=== PATIENT | female | born 1970 | race Hispanic/Latino ===

== ENCOUNTER 2020-10-20 19:21 | Emergency (ER) | payer OTHER ==
[~2020-10-20] VITALS: Ht 165.1 cm; Wt 117.9 kg
[~2020-10-20 19:21] MED LIST: ATIVAN1 MG PO; MEDROL4 MG/DOSE-; NORCO 5-325 TA1 EACH PO; SOMA350 MG PO
[2020-10-20] MEDS ORDERED: KETOROLAC TROMETHAMINE 30 MG/ML VIAL IM STA (19:59)
[2020-10-20] MEDS ORDERED: ACETAMINOPHEN 325 MG TAB PO ONE (20:00)
[2020-10-20] MEDS ORDERED: DEXAMETHASONE SOD PHOS 10 MG/1 ML VIAL IM ONE (20:00)
[2020-10-20] MEDS ORDERED: LIDOPATCH1 EACH TOP (20:06)
[2020-10-20] MEDS ORDERED: ACETAMINOPHEN 325 MG TAB ONE (20:17)
[2020-10-20] MEDS ORDERED: KETOROLAC TROMETHAMINE 30 MG/ML VIAL ONE (20:17)
[2020-10-20] MEDS ORDERED: LIDOCAINE 4% PATCH TP ONE (20:17)
[2020-10-20] MEDS ORDERED: DEXAMETHASONE SOD PHOS 10 MG/1 ML VIAL ONE (20:17)
[2020-10-21] MEDS ORDERED: LIDOCAINE 4% PATCH TP SCH (09:00)
== END 2020-10-20 21:12 | disposition home or self-care (01) ==
LOC: ER 20:01
DX: M54.5 Low back pain (principal); K21.9 Gastro-esophageal reflux disease without esophagitis
CPT/HCPCS: 99283; J1100; J1885

== ENCOUNTER 2020-11-26 10:44 | Emergency (ER) | payer OTHER ==
[~2020-11-26] VITALS: Ht 165.1 cm; Wt 124.7 kg
[~2020-11-26 10:44] MED LIST changes: +LIDOPATCH1 EACH TOP
== END 2020-11-26 11:09 | disposition home or self-care (01) ==
LOC: ER 11:09
DX: M54.5 Low back pain (principal); Y93.E5 Activity, floor mopping and cleaning; I10 Essential (primary) hypertension; E03.9 Hypothyroidism, unspecified; K21.9 Gastro-esophageal reflux disease without esophagitis; G89.29 Other chronic pain
CPT/HCPCS: 99283

== ENCOUNTER 2021-01-14 21:14 | Emergency (ER) | payer OTHER ==
[~2021-01-14] VITALS: Ht 165.1 cm; Wt 124.7 kg
[2021-01-14] MEDS ORDERED: LORAZEPAM 1 MG TAB PO PRN (21:45)
[2021-01-14 21:53] LABS: BASOPHILS # (AUTO) 0.1 (0.0-0.1); BASOPHILS % 0.6 % (0.0-1.0); EOSINOPHILS # (AUTO) 0.1 (0.0-0.4); EOSINOPHILS % 1.1 % (0.0-6.0); HEMATOCRIT 42.3 % (34.2-44.1); HEMOGLOBIN 13.7 g/dL (12.0-16.0); LYMPHOCYTES # (AUTO) 3.5 (1.0-3.2); LYMPHOCYTES % 32.4 % (18.0-39.1); MEAN CORPUSCULAR HGB CONC 32.4 g/dL (31-35); MEAN CORPUSCULAR VOLUME 89.4 fL (81-99); MONOCYTES # (AUTO) 0.7 (0.2-0.8); MONOCYTES % 6.3 % (4.4-11.3); NEUTROPHILS # (AUTO) 6.5 (2.1-6.9); NEUTROPHILS % 59.1 % (38.7-80.0); PLATELET COUNT 320 x10e3/uL (140-360); RED BLOOD COUNT 4.73 x10e6/uL (3.6-5.1); RED CELL DISTRIBUTION WIDTH 13.2 % (11.7-14.4)
[2021-01-14 21:59] LABS: CLARITY,URINE CLOUDY (CLEAR); COLOR,URINE YELLOW (YELLOW)
[2021-01-14 22:00] LABS: AMPHETAMINES SCREEN,URINE NEGATIVE (NEGATIVE); BENZODIAZEPINES SCREEN,URINE NEGATIVE (NEGATIVE); KETONES,URINE NEGATIVE (NEGATIVE); LEUKOCYTE ESTERASE ,URINE NEGATIVE (NEGATIVE); NITRITE,URINE NEGATIVE (NEGATIVE); PHENCYCLIDINE SCREEN,URINE NEGATIVE (NEGATIVE); PROTEIN,URINE DIPSTICK NEGATIVE (NEGATIVE); URINE UROBILINOGEN 0.2 mg/dL (0.2 - 1)
[2021-01-14 22:06] LABS: ALBUMIN 3.5 g/dL (3.5-5.0); ALBUMIN/GLOBULIN RATIO 0.9 (0.8-2.0); ANION GAP 11.8 mmol/L (8-16); CREATININE, SERUM 0.75 mg/dL (0.57-1.11); POTASSIUM 3.8 mmol/L (3.5-5.1)
[2021-01-14 22:21] LABS: BACTERIA,URINE MANY /HPF; EPITHELIAL CELLS,URINE FEW /LPF; RBC,URINE 0-5 /HPF (0-5); WBC,URINE (MAN) 0-5 /HPF (0-5)
[2021-01-14 22:37] LABS: CREATINE KINASE MB 0.8 ng/mL (0-5.0)
[2021-01-14 23:53] VITALS: BP 145/74
== END 2021-01-14 23:30 | disposition home or self-care (01) ==
LOC: ER 21:23
DX: R07.89 Other chest pain (principal); F41.9 Anxiety disorder, unspecified; I10 Essential (primary) hypertension; E03.9 Hypothyroidism, unspecified; K21.9 Gastro-esophageal reflux disease without esophagitis; M54.9 Dorsalgia, unspecified; G89.29 Other chronic pain
CPT/HCPCS: 36415; 71045; 80053; 80307; 81001; 82550; 82553; 84484; 85025; 85379; 93005; 99283

== ENCOUNTER 2022-01-02 09:58 | Observation (INO) | payer OTHER ==
[~2022-01-02] VITALS: Ht 165.1 cm; Wt 124.7 kg
[~2022-01-02 09:58] MED LIST changes: +SODIUM CHLORIDE FLUSH 10 ML SYR IV PRN
[2022-01-02] MEDS ORDERED: ONDANSETRON HCL INJ 2MG/ML 2ML 2 MG/ML VIAL IV STA (10:12)
[2022-01-02] MEDS ORDERED: ASPIRIN 325 MG TAB PO ONE (10:15)
[2022-01-02] MEDS ORDERED: Morphine 4mg INJECTION 4 MG/ML INJ IV ONE (10:15)
[2022-01-02 10:22] LABS: BASOPHILS # (AUTO) 0.1 (0.0-0.1); BASOPHILS % 0.6 % (0.0-1.0); EOSINOPHILS # (AUTO) 0.1 (0.0-0.4); HEMOGLOBIN 14.1 g/dL (12.0-16.0); LYMPHOCYTES # (AUTO) 2.3 (1.0-3.2); LYMPHOCYTES % 23.4 % (18.0-39.1); MEAN CORPUSCULAR HEMOGLOBIN 28.7 pg (28-32); MEAN CORPUSCULAR VOLUME 89.6 fL (81-99); MONOCYTES # (AUTO) 0.6 (0.2-0.8); MONOCYTES % 6.4 % (4.4-11.3); NEUTROPHILS # (AUTO) 6.8 (2.1-6.9); NEUTROPHILS % 67.9 % (38.7-80.0); PLATELET COUNT 320 x10e3/uL (140-360); RED BLOOD COUNT 4.91 x10e6/uL (3.6-5.1); RED CELL DISTRIBUTION WIDTH 13.1 % (11.7-14.4)
[2022-01-02 10:33] LABS: INR 0.87; PROTHROMBIN TIME 12.6 seconds (11.9-14.5)
[2022-01-02 10:34] LABS: PARTIAL THROMBOPLASTIN TIME 31.9 seconds (23.8-35.5)
[2022-01-02 10:42] LABS: ALBUMIN 3.3 g/dL (3.5-5.0); ALBUMIN/GLOBULIN RATIO 0.6 (0.8-2.0); ANION GAP 13.7 mmol/L (8-16); CALCIUM 8.9 mg/dL (8.4-10.2); CREATININE, SERUM 0.7 mg/dL (0.57-1.11); POTASSIUM 3.7 mmol/L (3.5-5.1)
[2022-01-02 11:03] LABS: AMPHETAMINES SCREEN,URINE NEGATIVE (NEGATIVE); PHENCYCLIDINE SCREEN,URINE NEGATIVE (NEGATIVE)
[2022-01-02 11:04] LABS: BENZODIAZEPINES SCREEN,URINE NEGATIVE (NEGATIVE)
[2022-01-02 11:11] LABS: CLARITY,URINE CLEAR (CLEAR); COLOR,URINE YELLOW (YELLOW); KETONES,URINE NEGATIVE (NEGATIVE); LEUKOCYTE ESTERASE ,URINE NEGATIVE (NEGATIVE); NITRITE,URINE NEGATIVE (NEGATIVE); PROTEIN,URINE DIPSTICK NEGATIVE (NEGATIVE); URINE UROBILINOGEN 0.2 mg/dL (0.2 - 1)
[2022-01-02 11:26] LABS: BACTERIA,URINE MODERATE /HPF; EPITHELIAL CELLS,URINE MODERATE /LPF; RBC,URINE 0-5 /HPF (0-5); WBC,URINE (MAN) 0-5 /HPF (0-5)
[2022-01-02] MEDS ORDERED: ASPIRIN 81 MG CHEW TAB PO ONE (11:45)
[2022-01-02] MEDS ORDERED: ONDANSETRON HCL INJ 2MG/ML 2ML 2 MG/ML VIAL IV PRN (11:45)
[2022-01-02] MEDS ORDERED: Morphine 4mg INJECTION 4 MG/ML INJ IV PRN (11:45)
[2022-01-02 16:12] VITALS: BP 168/83
[2022-01-02] MEDS ORDERED: LISINOPRIL 10 MG TAB PO SCH (16:15)
[2022-01-02] MEDS ORDERED: HYDRALAZINE HCL 25 MG TAB PO PRN (16:15)
[2022-01-02 16:57] VITALS: BP 170/83
[2022-01-02 17:06] VITALS: BP 170/83
[2022-01-02 17:31] VITALS: BP 139/71
[2022-01-02 18:41] LABS: CREATINE KINASE 54 IU/L (29-168)
[2022-01-02 20:00] VITALS: BP 139/71
[2022-01-03 00:43] VITALS: BP 109/47
[2022-01-03 02:26] VITALS: BP 109/47
[2022-01-03 04:36] LABS: BASOPHILS # (AUTO) 0.1 (0.0-0.1); BASOPHILS % 0.5 % (0.0-1.0); EOSINOPHILS # (AUTO) 0.1 (0.0-0.4); EOSINOPHILS % 1.3 % (0.0-6.0); HEMATOCRIT 43.1 % (34.2-44.1); HEMOGLOBIN 13.5 g/dL (12.0-16.0); LYMPHOCYTES % 20.8 % (18.0-39.1); MEAN CORPUSCULAR HEMOGLOBIN 28.3 pg (28-32); MEAN CORPUSCULAR HGB CONC 31.3 g/dL (31-35); MEAN CORPUSCULAR VOLUME 90.4 fL (81-99); MONOCYTES # (AUTO) 0.6 (0.2-0.8); MONOCYTES % 6.6 % (4.4-11.3); NEUTROPHILS # (AUTO) 6.7 (2.1-6.9); NEUTROPHILS % 70.4 % (38.7-80.0); PLATELET COUNT 304 x10e3/uL (140-360); RED BLOOD COUNT 4.77 x10e6/uL (3.6-5.1); RED CELL DISTRIBUTION WIDTH 13.2 % (11.7-14.4)
[2022-01-03 04:53] LABS: ALBUMIN/GLOBULIN RATIO 0.6 (0.8-2.0); ANION GAP 12.8 mmol/L (8-16); CALCIUM 8.5 mg/dL (8.4-10.2); CREATININE, SERUM 0.71 mg/dL (0.57-1.11); POTASSIUM 3.8 mmol/L (3.5-5.1)
[2022-01-03 05:10] VITALS: BP 137/77
[2022-01-03 06:39] LABS: CREATINE KINASE 45 IU/L (29-168)
[2022-01-03 08:30] VITALS: BP 120/62
[2022-01-03] MEDS ORDERED: REGADENOSON 0.4 MG/5 ML SYR IV ONE (08:40)
[2022-01-03 11:52] VITALS: BP 133/63
[2022-01-03] MEDS ORDERED: ONDANSETRON HCL 4 MG ORAL DISINTEGRATING TAB PO PRN (14:00)
[2022-01-03 14:51] LABS: CREATINE KINASE 48 IU/L (29-168)
[2022-01-04] MEDS ORDERED: LISINOPRIL 10 MG TAB PO SCH (09:00)
== END 2022-01-03 15:59 | disposition home or self-care (01) ==
LOC: ER 10:15 → ERHOLD 11:43 → MED/SURG3 15:45
PROVIDERS: ADMIT Internal Medicine; ATTEND Internal Medicine
DX: R07.89 Other chest pain (principal); E66.01 Morbid (severe) obesity due to excess calories; Z68.42 Body mass index [BMI] 45.0-49.9, adult; I10 Essential (primary) hypertension; Z20.822 Contact with and (suspected) exposure to COVID-19; G89.29 Other chronic pain; K21.9 Gastro-esophageal reflux disease without esophagitis
CPT/HCPCS: 36415; 71045; 78452; 80053; 80061; 80307; 81001; 82550; 82553; 83690; 84484; 85025; 85610; 85730; 93005; 93017; 93306; 94799; 99284; A9502; G0378; J2270; J2405

== ENCOUNTER 2022-09-24 15:15 | Emergency (ER) | payer OTHER ==
[~2022-09-24] VITALS: Ht 165.1 cm; Wt 130.9 kg
[~2022-09-24 15:15] MED LIST changes: -SODIUM CHLORIDE FLUSH 10 ML SYR IV PRN
[2022-09-24] MEDS ORDERED: DEXAMETHASONE SOD PHOS INJ 4 MG/ML SDV ONE (17:57)
[2022-09-24] MEDS ORDERED: DIPHENHYDRAMINE HCL INJ 50 MG/ML VIAL ONE (17:58)
[2022-09-24] MEDS ORDERED: SODIUM CHLORIDE 0.9% 1000ML 1,000 ML ONE (17:58)
[2022-09-24] MEDS ORDERED: METOCLOPRAMIDE HCL 10 MG/2ML VIAL ONE (17:58)
[2022-09-24] MEDS ORDERED: FIORICET-COD 51 EACH PO (18:44)
[2022-09-24] MEDS ORDERED: FIORICET 50-301 EACH PO (18:45)
[2022-09-24] MEDS ORDERED: METOCLOPRAMIDE HCL 10 MG/2ML VIAL IV ONE (19:00)
[2022-09-24] MEDS ORDERED: DEXAMETHASONE SOD PHOS INJ 4 MG/ML SDV IV ONE (19:00)
[2022-09-24] MEDS ORDERED: DIPHENHYDRAMINE HCL INJ 50 MG/ML VIAL IV ONE (19:00)
[2022-09-24] MEDS ORDERED: SODIUM CHLORIDE 0.9% 1000ML 1,000 ML IV ONE (19:00)
== END 2022-09-24 18:59 | disposition home or self-care (01) ==
LOC: FSED 15:25
DX: R51.9 Headache, unspecified (principal); I10 Essential (primary) hypertension; E78.5 Hyperlipidemia, unspecified; E03.9 Hypothyroidism, unspecified; F41.9 Anxiety disorder, unspecified
CPT/HCPCS: 70450; 80053; 81003; 85025; 96374; 96375; 99284; J1100; J1200; J2765; J7030

== ENCOUNTER 2024-10-05 18:59 | Inpatient (IN) | payer OTHER ==
[~2024-10-05] VITALS: Ht 165.1 cm; Wt 122.5 kg
[~2024-10-05 18:59] MED LIST changes: +FIORICET 50-301 EACH PO; +FIORICET-COD 51 EACH PO
[2024-10-05 19:05] VITALS: TEMP 99.5
[2024-10-05 19:33] LABS: BASOPHILS % 0.2 % (0.0-1.0); EOSINOPHILS # (AUTO) 0.1 (0.0-0.4); EOSINOPHILS % 0.5 % (0.0-6.0); HEMATOCRIT 44.5 % (34.2-44.1); HEMOGLOBIN 14.3 g/dL (12.0-16.0); LYMPHOCYTES # (AUTO) 1.9 (1.0-3.2); LYMPHOCYTES % 10.6 % (18.0-39.1); MEAN CORPUSCULAR HEMOGLOBIN 27.8 pg (28-32); MEAN CORPUSCULAR HGB CONC 32.1 g/dL (31-35); MEAN CORPUSCULAR VOLUME 86.4 fL (81-99); MONOCYTES # (AUTO) 0.8 (0.2-0.8); MONOCYTES % 4.4 % (4.4-11.3); NEUTROPHILS # (AUTO) 15.4 (2.1-6.9); NEUTROPHILS % 83.5 % (38.7-80.0); PLATELET COUNT 384 x10e3/uL (140-360); RED BLOOD COUNT 5.15 x10e6/uL (3.6-5.1); RED CELL DISTRIBUTION WIDTH 13.8 % (11.7-14.4); WHITE BLOOD COUNT 18.38 x10e3/uL (4.8-10.8)
[2024-10-05 19:55] LABS: ALBUMIN 3.4 g/dL (3.5-5.0); ALBUMIN/GLOBULIN RATIO 0.7 (0.8-2.0); ANION GAP 15.8 mmol/L (8-16); BILIRUBIN,TOTAL 0.6 mg/dL (0.2-1.2); CALCIUM 8.6 mg/dL (8.4-10.2); CREATININE, SERUM 0.86 mg/dL (0.57-1.11); POTASSIUM 3.8 mmol/L (3.5-5.1); TOTAL PROTEIN 8.1 g/dL (6.5-8.1)
[2024-10-05 19:57] LABS: BACTERIA,URINE MANY /HPF; BILIRUBIN,URINE SMALL (NEGATIVE); CLARITY,URINE HAZY (CLEAR); COLOR,URINE YELLOW (YELLOW); EPITHELIAL CELLS,URINE MANY /LPF; GLUCOSE, URINE NEGATIVE (NEGATIVE); KETONES,URINE NEGATIVE (NEGATIVE); LEUKOCYTE ESTERASE ,URINE MODERATE (NEGATIVE); NITRITE,URINE NEGATIVE (NEGATIVE); PH,URINE 6 (5 - 7); PROTEIN,URINE DIPSTICK >=300 (NEGATIVE); URINE UROBILINOGEN 1 mg/dL (0.2 - 1); WBC,URINE (MAN) 21-50 /HPF (0-5)
[2024-10-05 20:01] LABS: TROPONIN I 0.001 ng/mL (0-0.300)
[2024-10-05 20:26] LABS: CORONAVIRUS COVID-19 AG NEGATIVE (NEGATIVE); INFLUENZA A AG NEGATIVE (NEGATIVE); INFLUENZA B AG NEGATIVE (NEGATIVE)
[2024-10-05] MEDS ORDERED: IOPAMIDOL 370 MG/ML 100 ML INFUS..BTL INJ ONE (20:45)
[2024-10-05] MEDS: Morphine 4mg INJECTION 4 MG/ML INJ IV STA (21:24)
[2024-10-05] MEDS: ONDANSETRON HCL INJ 2MG/ML 2ML 2 MG/ML VIAL IV STA (21:24)
[2024-10-05 21:26] VITALS: RESP 16
[2024-10-05 23:30] VITALS: PULSE 91
[2024-10-06] VITALS (12 sets, daily range): BP systolic 108–147; BP diastolic 50–78; PULSE 67–101; RESP 18–20; TEMP 97.6–98.4; O2SAT 96–100
[2024-10-06] MEDS: SODIUM CHLORIDE 0.9% 1000ML 1,000 ML IV SCH (00:41)
[2024-10-06] MEDS ORDERED: LEVOTHYROXINE175 MCG PO (02:42)
[2024-10-06] MEDS ORDERED: SERTRALINE HCL50 MG PO (02:42)
[2024-10-06] MEDS ORDERED: NEXIUM40 MG PO (02:42)
[2024-10-06] MEDS ORDERED: LISINOPRIL10 MG PO (02:42)
[2024-10-06] MEDS ORDERED: MOUNJARO2.5 MG/0.5 SQ (02:42)
[2024-10-06 05:40] LABS: BASOPHILS % 0.3 % (0.0-1.0); EOSINOPHILS # (AUTO) 0.1 (0.0-0.4); HEMATOCRIT 42.2 % (34.2-44.1); HEMOGLOBIN 13.4 g/dL (12.0-16.0); LYMPHOCYTES # (AUTO) 2.1 (1.0-3.2); MEAN CORPUSCULAR HEMOGLOBIN 27.7 pg (28-32); MEAN CORPUSCULAR HGB CONC 31.8 g/dL (31-35); MEAN CORPUSCULAR VOLUME 87.2 fL (81-99); MONOCYTES # (AUTO) 0.9 (0.2-0.8); MONOCYTES % 7.5 % (4.4-11.3); NEUTROPHILS # (AUTO) 8.3 (2.1-6.9); NEUTROPHILS % 72.2 % (38.7-80.0); PLATELET COUNT 341 x10e3/uL (140-360); RED BLOOD COUNT 4.84 x10e6/uL (3.6-5.1); RED CELL DISTRIBUTION WIDTH 13.8 % (11.7-14.4); WHITE BLOOD COUNT 11.53 x10e3/uL (4.8-10.8)
[2024-10-06 06:04] LABS: ALBUMIN 3.1 g/dL (3.5-5.0); ALBUMIN/GLOBULIN RATIO 0.7 (0.8-2.0); ANION GAP 14.4 mmol/L (8-16); BILIRUBIN,TOTAL 0.6 mg/dL (0.2-1.2); CALCIUM 8.3 mg/dL (8.4-10.2); CREATININE, SERUM 0.78 mg/dL (0.57-1.11); TOTAL PROTEIN 7.5 g/dL (6.5-8.1)
[2024-10-06 06:06] LABS: POTASSIUM 3.4 mmol/L (3.5-5.1)
[2024-10-06 06:27] LABS: CREATINE KINASE 23 IU/L (29-168)
[2024-10-06 06:42] LABS: TROPONIN I < 0.001 ng/mL (0-0.300)
[2024-10-06] MEDS ORDERED: METOPROLOL TARTRATE INJ 1 MG/ML VIAL IV PRN (10:30)
[2024-10-06] MEDS ORDERED: ACETAMINOPHEN 325 MG TAB PO PRN (10:30)
[2024-10-06] MEDS ORDERED: ALBUTEROL/IPRATROPIUM 3 ML NEB NEB PRN (10:30)
[2024-10-06 10:46] LABS: CHOL/HDL RATIO 4.7 (3.0-3.6)
[2024-10-06] MEDS: METOPROLOL TARTRATE 25 MG TAB PO SCH (11:38)
[2024-10-06] MEDS: METRONIDAZOLE 500MG/NS 100ML 100 ML IV SCH (11:39)
[2024-10-06] MEDS: Morphine 2mg Syringe 2 MG/ML SYR IV PRN (13:13)
[2024-10-06] MEDS: ONDANSETRON HCL INJ 2MG/ML 2ML 2 MG/ML VIAL IV PRN (13:13)
[2024-10-06 15:23] LABS: CREATINE KINASE 26 IU/L (29-168)
[2024-10-06 15:35] LABS: TROPONIN I < 0.001 ng/mL (0-0.300)
[2024-10-06] MEDS: ENOXAPARIN SOD INJ 40 MG/0.4 ML SYR SC SCH (16:40)
[2024-10-06] MEDS: MELATONIN 3 MG TAB PO PRN (21:54)
[2024-10-07] VITALS (9 sets, daily range): BP systolic 109–141; BP diastolic 57–79; PULSE 63–87; RESP 16–20; TEMP 97.5–98.5; O2SAT 95–100
[2024-10-07 05:20] LABS: BASOPHILS # (AUTO) 0.1 (0.0-0.1); BASOPHILS % 0.7 % (0.0-1.0); EOSINOPHILS # (AUTO) 0.2 (0.0-0.4); EOSINOPHILS % 2.3 % (0.0-6.0); HEMATOCRIT 39.1 % (34.2-44.1); HEMOGLOBIN 12.2 g/dL (12.0-16.0); LYMPHOCYTES # (AUTO) 2.7 (1.0-3.2); LYMPHOCYTES % 32.5 % (18.0-39.1); MEAN CORPUSCULAR HEMOGLOBIN 27.8 pg (28-32); MEAN CORPUSCULAR HGB CONC 31.2 g/dL (31-35); MEAN CORPUSCULAR VOLUME 89.1 fL (81-99); MONOCYTES # (AUTO) 0.8 (0.2-0.8); MONOCYTES % 9.8 % (4.4-11.3); NEUTROPHILS # (AUTO) 4.5 (2.1-6.9); PLATELET COUNT 301 x10e3/uL (140-360); RED BLOOD COUNT 4.39 x10e6/uL (3.6-5.1); WHITE BLOOD COUNT 8.39 x10e3/uL (4.8-10.8)
[2024-10-07 06:00] LABS: ANION GAP 11.6 mmol/L (8-16); CALCIUM 8.1 mg/dL (8.4-10.2); CREATININE, SERUM 0.76 mg/dL (0.57-1.11); POTASSIUM 3.6 mmol/L (3.5-5.1)
[2024-10-07] MEDS: LEVOTHYROXINE SODIUM 100 MCG TAB PO SCH (06:08)
[2024-10-07] MEDS: LEVOTHYROXINE SODIUM 75 MCG TAB PO SCH (06:08)
[2024-10-07] MEDS: SERTRALINE HCL 50 MG TAB PO SCH (08:21)
[2024-10-08] VITALS (7 sets, daily range): BP systolic 133–137; BP diastolic 67–68; PULSE 61–82; RESP 17–20; TEMP 97.6–98.1; O2SAT 97–100
[2024-10-08 06:39] LABS: BASOPHILS # (AUTO) 0.1 (0.0-0.1); BASOPHILS % 0.9 % (0.0-1.0); EOSINOPHILS # (AUTO) 0.2 (0.0-0.4); EOSINOPHILS % 2.2 % (0.0-6.0); HEMATOCRIT 39.2 % (34.2-44.1); HEMOGLOBIN 12.1 g/dL (12.0-16.0); LYMPHOCYTES # (AUTO) 2.8 (1.0-3.2); LYMPHOCYTES % 32.6 % (18.0-39.1); MEAN CORPUSCULAR HEMOGLOBIN 27.9 pg (28-32); MEAN CORPUSCULAR HGB CONC 30.9 g/dL (31-35); MEAN CORPUSCULAR VOLUME 90.5 fL (81-99); MONOCYTES # (AUTO) 0.7 (0.2-0.8); MONOCYTES % 8.4 % (4.4-11.3); NEUTROPHILS # (AUTO) 4.7 (2.1-6.9); NEUTROPHILS % 54.6 % (38.7-80.0); PLATELET COUNT 300 x10e3/uL (140-360); RED BLOOD COUNT 4.33 x10e6/uL (3.6-5.1); RED CELL DISTRIBUTION WIDTH 14.1 % (11.7-14.4); WHITE BLOOD COUNT 8.56 x10e3/uL (4.8-10.8)
[2024-10-08 07:25] LABS: ANION GAP 12.5 mmol/L (8-16); CALCIUM 8.3 mg/dL (8.4-10.2); CREATININE, SERUM 0.72 mg/dL (0.57-1.11); POTASSIUM 3.5 mmol/L (3.5-5.1)
[2024-10-08] MEDS: DICYCLOMINE HCL 20 MG TAB PO SCH (08:04)
[2024-10-08] MEDS ORDERED: LOPRESSOR25 MG PO (10:47)
[2024-10-08] MEDS ORDERED: PANTOPRAZOLE SO40 MG PO (10:47)
[2024-10-08] MEDS ORDERED: METRONIDAZOLE500 MG PO (10:47)
[2024-10-08] MEDS ORDERED: DICYCLOMINE HCL20 MG PO (10:47)
[2024-10-08] MEDS ORDERED: ONDANSETRON ODT4 MG PO (10:47)
[2024-10-08] MEDS ORDERED: CEPHALEXIN500 MG PO (10:47)
== END 2024-10-08 13:12 | disposition home or self-care (01) | DRG 372 ==
LOC: ER 19:02 → ERHOLD 22:35 → MED/SURG3 10-06 00:17 → OBSVTOIN 10-07 11:13
PROVIDERS: ADMIT Internal Medicine; ATTEND Internal Medicine
DX: A04.9 Bacterial intestinal infection, unspecified (principal); E87.1 Hypo-osmolality and hyponatremia; N39.0 Urinary tract infection, site not specified; Z68.41 Body mass index [BMI] 40.0-44.9, adult; E87.20 Acidosis, unspecified; I10 Essential (primary) hypertension; E78.5 Hyperlipidemia, unspecified; E66.9 Obesity, unspecified; Z11.52 Encounter for screening for COVID-19; E03.9 Hypothyroidism, unspecified; F41.9 Anxiety disorder, unspecified; F32.A Depression, unspecified; K21.9 Gastro-esophageal reflux disease without esophagitis; M54.9 Dorsalgia, unspecified; Z90.49 Acquired absence of other specified parts of digestive tract; Z79.890 Hormone replacement therapy
CPT/HCPCS: 36415; 70450; 71045; 72125; 74176; 80048; 80053; 80061; 81001; 82550; 82948; 83036; 83605; 83690; 83880; 84484; 85025; 87040; 87086; 93005; 94799; 99284; G0378; J0696; J1650; J2270; J2405; J2470; J7030; Q9967